=== PATIENT | male | born 1975 | race Caucasian/White ===

== ENCOUNTER 2016-08-26 23:31 | Emergency (ER) | payer BC, OTHER ==
[~2016-08-26] VITALS: Ht 175.3 cm; Wt 80.0 kg
[2016-08-26 23:47] VITALS: BP 145/88; PULSE 115; RESP 16; TEMP 98.1; O2SAT 98
[2016-08-27 00:05] LABS: HEMATOCRIT 44.9 % (39.0-51.0); MEAN CELL VOLUME 92.3 FL (80.0-100.0); MEAN CORPUSCULAR HEMOGLOBIN 33.1 PG (27.0-34.0); MEAN CORPUSCULAR HGB CONC 35.9 % (32.0-36.0); PLATELET COUNT 276 TH/MM3 (150-450); RED BLOOD COUNT 4.86 MIL/MM3 (4.50-5.90); RED CELL DISTRIBUTION WIDTH 14.1 % (11.6-17.2); REVIEW FLAG FINAL; WHITE BLOOD COUNT 8.2 TH/MM3 (4.0-11.0)
[2016-08-27 00:20] LABS: BICARBONATE 23.8 MEQ/L (21.0-32.0); POTASSIUM 3.5 MEQ/L (3.5-5.1)
[2016-08-27] MEDS ORDERED: SODIUM CHLOR 0.9% 1000 ML INJ 1,000 ML IV ONE (01:15)
[2016-08-27 01:26] VITALS: BP 134/75; PULSE 101; RESP 16; O2SAT 98
[2016-08-27 01:39] LABS: APTT (PATIENT) 27.8 SEC (24.3-30.1); INTERNATIONAL NORMALIZED RATIO 1.2 RATIO; PROTHROMBIN TIME - PATIENT 12.9 SEC (9.8-11.6)
[2016-08-27 02:09] LABS: ACETAMINOPHEN LESS THAN 2.0 MCG/ML (10.0-30.0); ALT (GPT) 23 U/L (12-78); AST (GOT) 18 U/L (15-37)
[2016-08-27 02:11] LABS: ALKALINE PHOSPHATASE 72 U/L (45-117); INDIRECT BILIRUBIN 0.1 MG/DL (0.0-0.8); TOTAL BILIRUBIN ADULT 0.2 MG/DL (0.2-1.0)
--- NOTE | 2016-08-27 02:14 | PD ---
HPI Chief Complaint: Altered Mental Status Time Seen by Provider: 01:08 Travel History International Travel<30 days: No Contact w/Intl Traveler<30days: No Traveled to known affect area: No History of Present Illness HPI The patient is a 41 year old male who presents to the [facility] emergency department with a history of reportedly being noted by his girlfriend at a local hotel to be confused and seemed to be over medicated. He reports that he has been drinking alcohol this evening, however he reports that he only had 2 drinks. His girlfriend became concerned when she noticed that his muscle relaxer bottle was empty. It was reportedly filled in mid July. He reports that he did take 2 muscle relaxer tablets. He cannot recall the name of the medication. He reports that he has a history of back pain. The patient arrives drowsy. The patient reports feeling hungry and is requesting food. The patient has slurred speech is difficult to understand. The patient denies having any suicidal or homicidal ideations. He denies having any history of depression. The patient has to be repeatedly awakened to answer questions, however on review of systems, the patient denies any recent fevers cough, congestion, neck pain, chest pain, shortness of breath, abdominal pain, vomiting , diarrhea, urinary symptoms, or other neurologic symptoms. [facility] Past Medical History Narrative Medical The patient's past medical history is significant for back pain. Medical History: Unable to Obtain Tetanus Vaccination: Unknown Past Surgical History Narrative Surgical The patient's past surgical history is reportedly none. Surgical History: Unable to Obtain Social History Alcohol Use: Yes Tobacco Use: Yes Substance Use: No Allergies-Medications (Allergen,Severity, Reaction): Coded Allergies: No Known Allergies (Unverified , 08/26/16) Reported Meds & Prescriptions Reported Meds & Active Scripts Active Active Prescriptions or Reported Medications Unobtainable Review of Systems Except as stated in HPI: all other systems reviewed are Neg General / Constitutional: No: Fever Eyes: No: Visual changes HENT: No: Headaches Cardiovascular: No: Chest Pain or Discomfort Respiratory: No: Shortness of Breath Gastrointestinal: No: Abdominal Pain Genitourinary: No: Dysuria Musculoskeletal: Positive: Myalgias, Pain Skin: No Rash Neurologic: Positive: Change in Mentation, Slurred Speech, No: Weakness, Focal Abnormalities, Sensory Disturbance Psychiatric: Positive: Substance Abuse, No: Depression, Suicidal Ideations, Mood Disorder, Homicidal Ideation Endocrine: No: Polydipsia Hematologic/Lymphatic: No: Easy Bruising Physical Exam Narrative General: The patient is a well-developed well-nourished male, drowsy on examination with slurred speech and odor of alcohol about him. Head and Neck exam: Head is normocephalic atraumatic. Eyes: EOMI, pupils are equal round and reactive to light. Nose: Midline septum with pink mucous membranes Mouth: Dentition unremarkable. Moist mucus membranes. Posterior oropharynx is not erythematous. No tonsillar hypertrophy. Uvula midline. Airway patent. Neck: No palpable lymphadenopathy. No nuchal rigidity. No thyromegaly. Cardiovascular: Regular rate and rhythm without murmurs, gallops, or rubs. Lungs: Clear to auscultation bilaterally. No wheezes, rhonchi, or rales. Abdomen: Soft, without tenderness to palpation in all 4 quadrants of the abdomen. No guarding, rebound, or rigidity. Normal bowel sounds are audible. Extremities: No clubbing, cyanosis, or edema. 2+ pulses in all 4 extremities. Back: No spinous process tenderness to palpation. No costovertebral angle tenderness to palpation. Neurologic Exam: Cranial nerves 2-12 were intact on exam. Strength is 5/5 in all 4 extremities. No sensory deficits noted. The patient is oriented to person, place, however not time or situation. The patient has slightly slurred speech. Past the patient has an odor of alcohol about him. Skin Exam: No rash noted. Intact skin that is warm and dry. Data Data Last Documented VS Vital Signs Date Time Temp Pulse Resp B/P Pulse Ox O2 Delivery O2 Flow Rate FiO2 08/27/16 01:26 101 16 134/75 98 Room Air 08/26/16 23:47 98.1 Orders Basic Metabolic Panel (Bmp) (08/26/16 23:52) Cbc No Diff, Includes Plts (08/26/16 23:52) Electrocardiogram (08/27/16 ) Drug Screen, Random Urine (08/27/16 01:06) Alcohol (Ethanol) (08/27/16 01:06) Salicylates (Aspirin) (08/27/16 01:06) Tylenol (Acetaminophen) (08/27/16 01:06) Psych Screen (08/27/16 01:06) Hepatic Functional Panel (08/27/16 01:06) Sodium Chlor 0.9% 1000 Ml Inj (Ns 1000 M (08/27/16 01:15) Prothrombin Time / Inr (Pt) (08/27/16 01:08) Act Partial Throm Time (Ptt) (08/27/16 01:08) Urinalysis - C+S If Indicated (08/27/16 01:08) Magnesium (Mg) (08/27/16 01:08) Iv Access Insert/Monitor (08/27/16 01:08) Ecg Monitoring (08/27/16 01:08) Oximetry (08/27/16 01:08) Ct Brain W/O Iv Contrast(Rout) (08/27/16 02:14) Labs Laboratory Tests Test 08/26/16 08/27/16 08/27/16 23:55 01:24 02:00 White Blood Count 8.2 TH/MM3 Red Blood Count 4.86 MIL/MM3 Hemoglobin 16.1 GM/DL Hematocrit 44.9 % Mean Corpuscular Volume 92.3 FL Mean Corpuscular Hemoglobin 33.1 PG Mean Corpuscular Hemoglobin 35.9 % Concent Red Cell Distribution Width 14.1 % Platelet Count 276 TH/MM3 Mean Platelet Volume 7.3 FL Sodium Level 146 MEQ/L Potassium Level 3.5 MEQ/L Chloride Level 113 MEQ/L Carbon Dioxide Level 23.8 MEQ/L Anion Gap 9 MEQ/L Blood Urea Nitrogen 8 MG/DL Creatinine 0.78 MG/DL Estimat Glomerular Filtration 110 ML/MIN Rate Random Glucose 98 MG/DL Calcium Level 8.4 MG/DL Magnesium Level 2.0 MG/DL Total Bilirubin 0.2 MG/DL Direct Bilirubin 0.1 MG/DL Indirect Bilirubin 0.1 MG/DL Aspartate Amino Transf 18 U/L (AST/SGOT) Alanine Aminotransferase 23 U/L (ALT/SGPT) Alkaline Phosphatase 72 U/L Total Protein 6.8 GM/DL Albumin 3.4 GM/DL Salicylates Level 5.5 MG/DL Acetaminophen Level LESS THAN 2.0 MCG/ML Ethyl Alcohol Level 95 MG/DL Prothrombin Time 12.9 SEC Prothromb Time International 1.2 RATIO Ratio Activated Partial 27.8 SEC Thromboplast Time Urine Color YELLOW Urine Turbidity CLEAR Urine pH 5.5 Urine Specific [place] 1.006 Urine Protein NEG mg/dL Urine Glucose (UA) NEG mg/dL Urine Ketones NEG mg/dL Urine Occult Blood NEG Urine Nitrite NEG Urine Bilirubin NEG Urine Urobilinogen LESS THAN 2.0 MG/DL Urine Leukocyte Esterase NEG Urine RBC LESS THAN 1 /hpf Urine WBC 2 /hpf Urine Bacteria RARE /hpf Urine Mucus FEW /lpf Microscopic Urinalysis Comment CULT NOT INDICATED Urine Opiates Screen NEG Urine Barbiturates Screen NEG Urine Amphetamines Screen NEG Urine Benzodiazepines Screen NEG Urine Cocaine Screen NEG Urine Cannabinoids Screen NEG MDM Medical Decision Making Medical Screen Exam Complete: Yes Emergency Medical Condition: Yes Medical Record Reviewed: Yes Differential Diagnosis Acute alcohol intoxication, versus other substance intoxication, versus metabolic encephalopathy Narrative Course During the course of the patients emergency department visit, the patients history, examination, and differential diagnosis were reviewed with the patient. The patient had IV access obtained and blood work sent for analysis. The patient had an EKG done. The patient's EKG shows a sinus tachycardia rate of 120, no acute ST segment changes. No ST segment elevation, however ST downsloping is noted in lead 3. A CT scan of the brain was ordered. The patient was provided normal saline 1 L IV fluid bolus. The patient was provided crackers. The patients laboratory studies were reviewed and remarkable for a white count of 8.2, hemoglobin 16.1, platelets 276, basic metabolic profile remarkable for sodium of 146, chloride 113, calcium 8.4, PT 12.9, INR 1.2, salicylate 5.5, liver function tests are unremarkable, urinalysis is unremarkable, urine drug screen is negative, acetaminophen is less than 2, alcohol level is 95. Radiology studies were reviewed and remarkable for a CT scan of the brain shows no acute abnormality. The patient was reexamined. The patient was easily awakened. The patient was more coherent and his speech was less slurred. The patient recalled meeting me previously. The patient will have a psychiatric screen done to further evaluate. The patient has been medically cleared for evaluation by the psychiatric screener. Diagnosis Primary Impression: Altered mental status Qualified Code: R41.0 - Disorientation Scripts Unable to Obtain Active Prescriptions or Reported Meds Georgette Calderon MD Aug 27, 2016 02:14 Scripts Unable to Obtain Active Prescriptions or Reported Meds Georgette Calderon MD Aug 27, 2016 02:14
[2016-08-27 02:15] LABS: BACTERIA, URINE RARE /hpf; BLOOD, URINE NEG (NEG); COMMENT (UR) CULT NOT INDICATED; CULTURE IF INDICATED CULT NOT INDICATED; GLUCOSE,URINE NEG (NEG); KETONE, URINE NEG (NEG); MUCUS URINE FEW /lpf (OCC); NITRITE,URINE NEG (NEG); PH, URINE 5.5 (5.0-8.5); URINE COLOR YELLOW (YELLW/STRAW)
[2016-08-27 02:23] LABS: AMPHETAMINE, URINE NEG (NEG); BARBITURATES, URINE NEG (NEG); COCAINE, URINE NEG (NEG)
--- NOTE | 2016-08-27 03:16 | RADRPT ---
EXAM DATE/TIME: 08/27/2016 02:25 [place] COMPARISON: No previous studies available for comparison. INDICATIONS : Altered mental status RADIATION DOSE: 38.57 CTDIvol (mGy) MEDICAL HISTORY : None SURGICAL HISTORY : None. ENCOUNTER: Initial ACUITY: 1 day PAIN SCALE: 0/10 LOCATION: Bilateral cranial TECHNIQUE: Multiple contiguous axial images were obtained of the head. Using automated exposure control and adj ustment of the mA and/or kV according to patient size, radiation dose was kept as low as reasonably a chievable to obtain optimal diagnostic quality images. FINDINGS: CEREBRUM: The ventricles are normal for age. No evidence of midline shift, mass lesion, hemorrhage or acute in farction. No extra-axial fluid collections are seen. POSTERIOR FOSSA: The cerebellum and brainstem are intact. The 4th ventricle is midline. The cerebellopontine angle i s unremarkable. EXTRACRANIAL: The visualized portion of the orbits is intact. SKULL: The calvaria is intact. No evidence of skull fracture. CONCLUSION: Normal examination. Flako Ruby MD on August 27, 2016 at 3:14 Board Certified Radiologist. This report was verified electronically.
[2016-08-27 06:05] VITALS: O2SAT 98
--- NOTE | 2016-08-27 22:29 | EKG ---
Date Performed: 08/27/2016 Time Performed: 01:16:35 PTAGE: 41 years EKG: SINUS TACHYCARDIA LOW QRS VOLTAGE IN EXTREMITY LEADS ABNORMAL QRS-T ANGLE ABNORMAL ECG NO PREVIOUS TRACING DOCTOR: Fawad Kwon Interpretating Date/Time 08/27/2016 22:27:09
[2016-09-17] MEDS ORDERED: APIX2.5T PO (09:17)
[2016-09-17] MEDS ORDERED: PLAV75TA29 PO (09:17)
== END 2016-08-27 07:05 | disposition home or self-care (01) ==
LOC: NEPD 23:31
DX: R41.82 Altered mental status, unspecified (principal); R47.81 Slurred speech; R00.0 Tachycardia, unspecified; R94.31 Abnormal electrocardiogram [ECG] [EKG]; Z72.0 Tobacco use
CPT/HCPCS: 70450; 80048; 80076; 80307; 80329; 81001; 83735; 85027; 85610; 85730; 93005; 96360; 99285; J7030; 80320; G0480